=== PATIENT | female | born 1960 | race Caucasian/White ===

== ENCOUNTER 2021-11-14 09:00 | Outpatient (CLI) | payer BC, SELFPAY ==
[2021-11-14 14:04] LABS: Chloride* 98 mmol/L (96-114)
[2021-11-14 14:05] LABS: Albumin* 4.7 g/dL (3.3-5.0); Potassium* 4.9 mmol/L (3.6-5.1); Sodium* 134 mmol/L (135-149)
[2021-11-14 14:07] LABS: Bilirubin Total* 0.5 mg/dL (0.1-1.5)
[2021-11-14 14:08] LABS: Alanine Aminotransferase* 23 U/L (4-35); Alkaline Phosphatase* 43 U/L (40-150); Aspartate Amino Transferase* 31 U/L (12-35); Blood Urea Nitrogen* 17 mg/dL (7-30); Calcium* 9.3 mg/dL (8.4-10.6); Carbon Dioxide* 28 mmol/L (20-32); Glucose* 95 mg/dL (60-115); Total Protein* 7.6 g/dL (6.0-8.3)
[2021-11-14 14:23] LABS: Creatinine* 0.8 mg/dL (0.5-1.5); Estimated Glomerular Filt Rate 85 ml/min
== END 2021-11-14 09:01 | disposition home or self-care (01) ==
PROVIDERS: PCP Physician Assistant Medical; Visit Provider Dermatology
DX: L40.9 Psoriasis, unspecified (principal); Z11.1 Encounter for screening for respiratory tuberculosis
CPT/HCPCS: 80053; 86480

== ENCOUNTER 2022-01-29 08:37 | Outpatient (CLI) | payer BC, SELFPAY ==
[2022-01-29 14:37] LABS: Albumin* 4.6 g/dL (3.3-5.0)
[2022-01-29 14:38] LABS: Chloride* 98 mmol/L (96-114); Potassium* 4.8 mmol/L (3.6-5.1); Sodium* 134 mmol/L (135-149)
[2022-01-29 14:40] LABS: Cholesterol* 193 mg/dL (90-199); Creatinine* 0.8 mg/dL (0.5-1.5); Estimated Glomerular Filt Rate 85 ml/min
[2022-01-29 14:41] LABS: Alanine Aminotransferase* 33 U/L (4-35); Alkaline Phosphatase* 42 U/L (40-150); Aspartate Amino Transferase* 34 U/L (12-35); Bilirubin Total* 0.4 mg/dL (0.1-1.5); Blood Urea Nitrogen* 15 mg/dL (7-30); Calcium* 9.1 mg/dL (8.4-10.6); Carbon Dioxide* 26 mmol/L (20-32); Glucose* 85 mg/dL (60-115); Total Protein* 6.9 g/dL (6.0-8.3); Triglycerides* 114 mg/dL (40-149)
[2022-01-29 14:42] LABS: HDL Cholesterol* 64 mg/dL (>=50); LDL Cholesterol Calculated 106 mg/dL (<100)
[2022-01-29 15:43] LABS: HIV 1/2/P24 Combo Screen* Negative (Negative); Hepatitis C Virus Antibody* Negative (Negative); TSH With Reflex to FT4* 0.158 uIU/mL (0.270-4.200)
[2022-01-29 16:25] LABS: Free T4 Free Thyroxine* 1.02 ng/dL (0.70-1.85)
== END 2022-01-29 08:38 | disposition home or self-care (01) ==
PROVIDERS: PCP Physician Assistant Medical; Visit Provider Physician Assistant Medical
DX: Z00.00 Encounter for general adult medical examination without abnormal findings (principal); E78.5 Hyperlipidemia, unspecified; E03.9 Hypothyroidism, unspecified; I10 Essential (primary) hypertension; Z11.3 Encounter for screening for infections with a predominantly sexual mode of transmission; Z11.59 Encounter for screening for other viral diseases
CPT/HCPCS: 80053; 80061; 84439; 84443; 86703; 86803

== ENCOUNTER 2023-01-07 08:00 | Outpatient (CLI) | payer BC, SELFPAY | END 2023-01-07 08:01 | disposition home or self-care (01) | LOC: NFLDREF 16:28 | PROVIDERS: PCP Physician Assistant Medical; Referring Provider Physician Assistant Medical; Visit Provider Physician Assistant Medical | DX: Z00.00 Encounter for general adult medical examination without abnormal findings (principal); E03.9 Hypothyroidism, unspecified; I10 Essential (primary) hypertension; E78.5 Hyperlipidemia, unspecified | CPT/HCPCS: 80053; 80061; 82306; 84443 ==

== ENCOUNTER 2023-01-09 13:37 | Outpatient (CLI) | payer BC, SELFPAY ==
[2023-01-09 22:27] LABS: Chlamydia DNA Amplified* NOT DETECTED (No Detected); GC DNA Amplified* NOT DETECTED (No Detected)
== END 2023-01-09 13:38 | disposition home or self-care (01) ==
LOC: LKVREF 13:37
PROVIDERS: PCP Physician Assistant Medical; Visit Provider Physician Assistant Medical
DX: Z00.00 Encounter for general adult medical examination without abnormal findings (principal); D72.819 Decreased white blood cell count, unspecified; E78.5 Hyperlipidemia, unspecified; R79.89 Other specified abnormal findings of blood chemistry; I10 Essential (primary) hypertension; E87.1 Hypo-osmolality and hyponatremia
CPT/HCPCS: 87491; 87591

== ENCOUNTER 2023-02-13 09:05 | Outpatient (CLI) | payer BC, SELFPAY | END 2023-02-13 09:06 | disposition home or self-care (01) | LOC: NFLDREF 02-21 05:28 | PROVIDERS: PCP Physician Assistant Medical; Referring Provider Physician Assistant Medical; Visit Provider Physician Assistant Medical | DX: D72.819 Decreased white blood cell count, unspecified (principal); E87.1 Hypo-osmolality and hyponatremia; R79.89 Other specified abnormal findings of blood chemistry | CPT/HCPCS: 84439; 84443; 84481; 86376 ==

== ENCOUNTER 2023-03-27 16:32 | Outpatient (CLI) | payer BC, SELFPAY ==
--- NOTE | 2023-03-27 17:00 | CRLHL7_ITS ---
For Patients: As a result of the Cures Act, medical imaging exams and procedure reports are released immediately into your electronic medical record. You may view this report before your referring provider. If you have questions, please contact your health care provider. INDICATION: ABNORMAL FINDINGS OF BLOOD CHEMISTRY COMPARISON: none TECHNIQUE: [place] scale and color Doppler images were acquired of the thyroid gland. FINDINGS: The right lobe measures 4.3 x 1.7 x 1.6 cm and the left lobe measures 3.7 x 1.3 x 1.4 cm in size. Isthmus measures 2 millimeters. Slightly hypoechoic nodule right thyroid lobe posteriorly measuring 1.2 x 0.6 x 1.0 cm. Circumscribed hypoechoic nodule anterior right thyroid lobe measuring 2.2 x 1.0 x 1.4 cm. The color Doppler images demonstrate normal vascularity. Solid hypoechoic nodule inferior to the left thyroid lobe measuring 7 x 5 x 6 millimeters. IMPRESSION: 2.2 cm TR 4 nodule right thyroid lobe. FNA recommended. 1.2 cm TR 4 nodule right thyroid lobe. Follow-up in 1 year recommended. Possible parathyroid adenoma adjacent to the inferior pole of the left thyroid lobe measuring 7 millimeters. Dictated by Hayden Antoine MD @ 03/28/2023 10:33:41 AM (Electronically Signed)
== END 2023-03-27 16:33 | disposition home or self-care (01) ==
LOC: US 16:33
PROVIDERS: PCP Physician Assistant Medical; Visit Provider Physician Assistant Medical
DX: R79.89 Other specified abnormal findings of blood chemistry (principal); E04.1 Nontoxic single thyroid nodule
CPT/HCPCS: 76536

== ENCOUNTER 2023-04-09 12:04 | Outpatient (CLI) | payer BC, SELFPAY | END 2023-04-09 12:05 | disposition home or self-care (01) | PROVIDERS: PCP Physician Assistant Medical; Visit Provider Physician Assistant Medical | DX: E04.1 Nontoxic single thyroid nodule (principal); E03.9 Hypothyroidism, unspecified; R76.8 Other specified abnormal immunological findings in serum; D72.819 Decreased white blood cell count, unspecified | CPT/HCPCS: 82310; 83970; 84443; 84481; 86258; 86364 ==

== ENCOUNTER 2023-04-17 07:47 | Outpatient (CLI) | payer BC, SELFPAY ==
--- NOTE | 2023-04-17 08:00 | CRLHL7_ITS ---
For Patients: As a result of the Century Cures Act, medical imaging exams and procedure reports are released immediately into your electronic medical record. You may view this report before your referring provider. If you have questions, please contact your health care provider. INDICATION : Right thyroid nodule. TECHNIQUE : Ultrasound-guided fine needle aspiration of thyroid nodule. Comparison : 04/09/2023 FINDINGS : PROCEDURE: After the informed consent and time-out, multiple fine needle aspirations were obtained from the thyroid nodule. Fine needle performed. 25 gauge needles were used. Lidocaine was used for local anesthesia. The preliminary cytology was adequate for interpretation. Real-time imaging was used for guidance and needle placement. Post imaging ultrasound demonstrates no immediate complication. IMPRESSION : Successful fine needle aspiration of right thyroid nodule. Dictated by Hayden Antoine MD @ 04/17/2023 9:21:45 AM (Electronically Signed)
== END 2023-04-17 07:48 | disposition home or self-care (01) ==
LOC: US 07:48
PROVIDERS: PCP Physician Assistant Medical; Visit Provider Physician Assistant Medical
DX: E04.1 Nontoxic single thyroid nodule (principal)
CPT/HCPCS: 10005; 88173

== ENCOUNTER 2023-05-16 12:28 | Outpatient (REF) | payer BC, SELFPAY ==
[2023-05-16 13:52] LABS: Free T4 Free Thyroxine* 0.98 ng/dL (0.70-1.85)
== END 2023-05-16 12:29 | disposition home or self-care (01) ==
LOC: NPINS 12:28
PROVIDERS: PCP Physician Assistant Medical; Visit Provider Internal Medicine Endocrinology, Diabetes & Metabolism
DX: R76.8 Other specified abnormal immunological findings in serum (principal)
CPT/HCPCS: 84439; 84443

== ENCOUNTER 2024-02-12 08:56 | Outpatient (CLI) | payer BC, SELFPAY | END 2024-02-12 08:57 | disposition home or self-care (01) | LOC: NFLDREF 02-16 13:34 | PROVIDERS: PCP Physician Assistant Medical; Referring Provider Physician Assistant Medical; Visit Provider Physician Assistant Medical | DX: E04.1 Nontoxic single thyroid nodule (principal); I10 Essential (primary) hypertension; L40.9 Psoriasis, unspecified; E78.5 Hyperlipidemia, unspecified; Z13.21 Encounter for screening for nutritional disorder | CPT/HCPCS: 80053; 80061; 82306; 84439; 84443 ==

== ENCOUNTER 2024-03-26 07:05 | Outpatient (CLI) | payer BC, SELFPAY ==
--- NOTE | 2024-03-26 07:15 | CRLHL7_ITS ---
For Patients: As a result of the Cures Act, medical imaging exams and procedure reports are released immediately into your electronic medical record. You may view this report before your referring provider. If you have questions, please contact your health care provider. INDICATION: Thyroid nodule COMPARISON: 04/17/2023, 03/27/2023 TECHNIQUE: [place] scale and color Doppler images were acquired of the thyroid gland. FINDINGS: Isthmus measures 2.1 millimeters. Solid hypoechoic nodule, previously biopsied, right thyroid lobe measures 1.4 x 0.9 x 1.8 cm, TR 4, previously measuring 1.4 x 0.8 x 1.7 cm. Additional hypoechoic nodule right thyroid lobe posteriorly measures 1.1 x 0.8 x 0.7 cm, TR 4, previously measuring 8 x 5 x 6 millimeter. Solid and cystic nodule upper pole right thyroid lobe measures 6 x 6 x 4 millimeters, TR 3. Small hypoechoic nodule left thyroid lobe measures 8 x 5 x 3 millimeters, TR 4, previously measuring 6 x 2 x 5 millimeters. Cystic nodule left thyroid lobe measures 4 x 4 x 2 millimeters, TR 1. The right lobe measures 4.5 x 2.1 x 1.4 cm and the left lobe measures 4.2 x 1.0 x 1.4 cm in size. The color Doppler images demonstrate normal vascularity. Solid circumscribed hypoechoic nodule inferior to the left thyroid lobe measures 8 x 5 x 4 millimeters, previously measuring 7 x 5 x 6 millimeters. IMPRESSION: Bilateral thyroid nodules and possible left parathyroid adenoma, not significantly changed since 03/27/2023. Dictated by Hayden Antoine MD @ 03/26/2024 11:41:54 AM (Electronically Signed)
== END 2024-03-26 07:06 | disposition home or self-care (01) ==
PROVIDERS: PCP Physician Assistant Medical; Visit Provider Physician Assistant Medical
DX: E04.1 Nontoxic single thyroid nodule (principal)
CPT/HCPCS: 76536

== ENCOUNTER 2024-04-07 08:39 | Outpatient (CLI) | payer BC, SELFPAY | END 2024-04-07 08:40 | disposition home or self-care (01) | LOC: NFLDREF 04-14 05:23 | PROVIDERS: PCP Physician Assistant Medical; Referring Provider Physician Assistant Medical; Visit Provider Physician Assistant Medical | DX: E03.9 Hypothyroidism, unspecified (principal); E87.1 Hypo-osmolality and hyponatremia; I10 Essential (primary) hypertension | CPT/HCPCS: 84443 ==

== ENCOUNTER 2024-04-19 09:03 | Outpatient (CLI) | payer BC, SELFPAY ==
--- NOTE | 2024-04-19 10:24 | P.ANES_ITS ---
Anesthesia Charges Start Date/Time Anesthesia Start Date: 04/19/24 Anesthesia Start Time: 09:58 Stop Date/Time Anesthesia Stop Date: 04/19/24 Anesthesia Stop Time: 10:21 Coding CPT Codes CPT Codes: ANES LWR INTST SCR COLSC - [id number] ([id number]) P2 - PATIENT W/MILD SYST DISEASE, QZ - HEAD GREENSKEEPER SVC W/O COUNTERINTELLIGENCE SPECIALIST BY
--- NOTE | 2024-04-19 10:24 | W.ANESCHARGE ---
Anesthesia Charges Start Date/Time Anesthesia Start Date: 04/19/24 Anesthesia Start Time: 09:58 Stop Date/Time Anesthesia Stop Date: 04/19/24 Anesthesia Stop Time: 10:21 Coding CPT Codes CPT Codes: ANES LWR INTST SCR COLSC - [id number] ([id number]) P2 - PATIENT W/MILD SYST DISEASE, QZ - ONLINE MERCHANDISING MANAGER SVC W/O [employer] BY
== END 2024-04-19 09:04 | disposition home or self-care (01) ==
LOC: OP CLINIC 09:03
PROVIDERS: PCP Physician Assistant Medical; Visit Provider Internal Medicine
DX: Z12.11 Encounter for screening for malignant neoplasm of colon (principal)
CPT/HCPCS: 00812; 45378; J2704

== ENCOUNTER 2024-05-06 09:10 | Outpatient (CLI) | payer BC, SELFPAY | END 2024-05-06 09:11 | disposition home or self-care (01) | LOC: LKVREF 09:12 | PROVIDERS: PCP Physician Assistant Medical; Visit Provider Physician Assistant Medical | DX: E87.1 Hypo-osmolality and hyponatremia (principal); E03.9 Hypothyroidism, unspecified; I10 Essential (primary) hypertension | CPT/HCPCS: 82043; 82570 ==

== ENCOUNTER 2024-07-21 09:17 | Outpatient (CLI) | payer BC, SELFPAY | END 2024-07-21 09:18 | disposition home or self-care (01) | PROVIDERS: PCP Physician Assistant Medical; Visit Provider Physician Assistant Medical | DX: R80.9 Proteinuria, unspecified (principal); I10 Essential (primary) hypertension; M79.89 Other specified soft tissue disorders; R00.0 Tachycardia, unspecified | CPT/HCPCS: 82043; 82570; 83880 ==

== ENCOUNTER 2024-08-05 07:08 | Outpatient (CLI) | payer BC, SELFPAY ==
--- NOTE | 2024-08-05 07:15 | CRLHL7_ITS ---
For Patients: As a result of the Century Cures Act, medical imaging exams and procedure reports are released immediately into your electronic medical record. You may view this report before your referring provider. If you have questions, please contact your health care provider. INDICATION: Hypertension TECHNIQUE: Grayscale, color Doppler and spectral Doppler evaluation of the kidneys and renal arteries performed. COMPARISON: None available FINDINGS: BILATERAL RENAL ARTERY DUPLEX ULTRASOUND ABDOMINAL AORTA: Peak systolic velocity = 52 cm/s. No aortic aneurysm. RIGHT KIDNEY: 10.1 cm in length. There is no hydronephrosis. Peak systolic velocity = 207 cm/second Renal artery to aortic peak systolic velocity ratio = 4.0 Resistive indices: 0.62-0.67 Renal vein = patent LEFT KIDNEY: 9.5 cm in length. There is no hydronephrosis. Peak systolic velocity = 158 cm/second Renal artery to aortic peak systolic velocity ratio = 3.0 Resistive indices: 0.63-0.66 Renal vein = patent IMPRESSION: Elevated peak systolic velocity within the right mid renal artery with right renal artery ratio 4.0, normal less than 3.5. This could suggest renal artery stenosis in the appropriate clinical setting. Further evaluation with CTA or MRA may be useful. No evidence of significant renal artery stenosis on the left. Dictated by Hayden Antoine MD @ 08/05/2024 9:23:47 AM (Electronically Signed)
== END 2024-08-05 07:09 | disposition home or self-care (01) ==
LOC: US 07:08
PROVIDERS: PCP Physician Assistant Medical; Visit Provider Physician Assistant Medical
DX: I10 Essential (primary) hypertension (principal)
CPT/HCPCS: 76775; 93975

== ENCOUNTER 2024-08-13 07:09 | Outpatient (CLI) | payer BC, SELFPAY ==
--- NOTE | 2024-08-13 07:15 | CRLHL7_ITS ---
For Patients: As a result of the Century Cures Act, medical imaging exams and procedure reports are released immediately into your electronic medical record. You may view this report before your referring provider. If you have questions, please contact your health care provider. INDICATION: Hypertension; elevated renal artery to aortic ratio in the right renal artery on the duplex ultrasound evaluation; rule out renal artery stenosis. Comparison: Duplex ultrasound evaluation renal arteries bilateral August 05, 2024. TECHNIQUE: MR angio abdominal aorta and visceral arteries; precontrast T1 and T2 weighted imaging; pre and post-contrast vibe imaging; 20 cc of Dotarem contrast was injected. FINDINGS: Single renal artery on the right without any evidence of renal artery stenosis. Difficult to identify the left femoral artery adequately due to interference by the early opacification of the left renal vein. The right kidney measures 8.8 cm and the left kidney measures 8.7 cm in the maximum vertical dimension. Simple hepatic cyst segment 4 of the liver. No renal vein abnormalities. IMPRESSION: 1. Single renal artery on the right without any evidence of renal artery stenosis. 2. The left renal artery is not adequately delineated secondary to interference by the renal vein. 3. Simple hepatic cysts segment 4 of the liver. Dictated by Dnany Betancur MD @ 08/13/2024 1:13:39 PM (Electronically Signed)
== END 2024-08-13 07:10 | disposition home or self-care (01) ==
LOC: MRI 07:09
PROVIDERS: PCP Physician Assistant Medical; Visit Provider Physician Assistant Medical
DX: R93.429 Abnormal radiologic findings on diagnostic imaging of unspecified kidney (principal); K76.89 Other specified diseases of liver; I10 Essential (primary) hypertension
CPT/HCPCS: 74185; A9575

== ENCOUNTER 2024-09-28 08:23 | Outpatient (CLI) | payer BC, SELFPAY | END 2024-09-28 08:24 | disposition home or self-care (01) | LOC: NFLDREF 09-30 10:11 | PROVIDERS: PCP Physician Assistant Medical; Referring Provider Physician Assistant Medical; Visit Provider Physician Assistant Medical | DX: E87.1 Hypo-osmolality and hyponatremia (principal); R60.0 Localized edema | CPT/HCPCS: 80048; 83880 ==

== ENCOUNTER 2024-11-01 09:16 | Outpatient (CLI) | payer BC, SELFPAY | END 2024-11-01 09:17 | disposition home or self-care (01) | PROVIDERS: PCP Physician Assistant Medical; Visit Provider Physician Assistant Medical | DX: E87.1 Hypo-osmolality and hyponatremia (principal) | CPT/HCPCS: 83930; 84100 ==